=== PATIENT | male | born 1995 | race Caucasian/White ===

== ENCOUNTER → 2018-06-18 14:32 | Outpatient (CLI) | payer OTHER, MEDICAID, SELFPAY | PROVIDERS: Visit Provider Family Medicine | DX: R10.13 Epigastric pain (principal) ==

== ENCOUNTER → 2018-06-21 13:15 | Outpatient (CLI) | payer OTHER, MEDICAID, SELFPAY ==
[2018-07-01 15:36] LABS: H. Pylori Antigen Stool NOT DETECTED
== END ==
PROVIDERS: Family Provider Family Medicine; Visit Provider Family Medicine
DX: R10.13 Epigastric pain (principal)
CPT/HCPCS: 86677

== ENCOUNTER 2018-08-16 14:30 | Outpatient (RCR) | payer OTHER, MEDICAID, SELFPAY ==
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
--- NOTE | 2018-08-13 09:41 | PT.OPPOC ---
Current Diagnoses Dorsalgia, unspecified (08/13/18) Provider Visit Care Team Role Provider Type Donny Chavis MD Family Provider Physician Specialty: Family Practice Address: [address] [place] [address], [id number] Email: [email or web address] Emilia Hammond MD Attending Provider Physician Primary Care Provider Specialty: [facility] Practice Address: [address] [place] [address], [id number] Email: [email or web address] Plan Of Care PT-OP-T Assessment and Plan Start: 08/13/18 08:16 Freq: Status: Active Protocol: Document 08/13/18 08:17 [facility] (Rec: 08/13/18 09:40 [facility] [id number]) Physical Therapy Assessment Rehab Potential Rehabilitation Potential Good Evaluation Complexity Number of Personal Factors/Comorbidities 3 or More Number of Body Systems Impaired 4 or More Clinical Presentation at Evaluation Evolving Impairments Impairments Activity Tolerance Functional Activities Gait Pain Posture ROM Soft Tissue Mobility Strength Goals Three Impairment posture Short Term Goal (STG) Pt will present with good posture without cueing STG Duration 09/24/18 Two Impairment strength Short Term Goal (STG) indep with HEP STG Duration 09/12/18 Razor Sharpener Goal (LTG) 5/5 LPM, VCT, EFT & LE strength to allow pt to show improvement in stability to have dec pain with activity LTG Duration 10/13 One Impairment MONTES Fpc Goal (LTG) Frequency to 1x/week LTG Duration 10/13/18 Assessment Summary Assessment Pt presents with chronic LBP & neck pain with poor posture & poor core stability & control . Physical Therapy Plan Frequency and Duration Frequency of Treatment 2x/Week Duration of Treatment 2 months Plan of Care Start Date 08/13/18 Plan of Care End Date 10/13/18 Therapeutic Interventions Therapeutic Interventions Aquatic Therapy Balance Training Gait Training Home Exercise Program Joint Mobilizations Manual Therapy Soft Tissue Mobilization Taping Therapeutic Activities Therapeutic Exercises Modalities Cold Pack/Ice Massage Electric Stimulation Hot Packs Infrared Therapy Traction- Mechanical Ultrasound Next Visit Focus/Plan Next Note Type Treatment Note Next Visit Plan Hip mobilizations, cat/camel, post pelvic tilt, bridging, STM to paraspinals, Estim & MHP/CP Plan of Care Dates Plan of Care Start Date 08/13/18 Plan of Care End Date 10/13/18 Please Sign and Return: I have reviewed this Plan of Care and certify that the skilled therapy services above are required to meet the patient?s needs. Physician Signature Date Printed Name and Credentials Clinical Instructor Signature Printed Name and Credentials
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
== END 2018-11-20 10:14 ==
LOC: PHYS 14:30
PROVIDERS: Family Provider Family Medicine; PCP Family Medicine; Visit Provider Family Medicine
DX: M54.9 Dorsalgia, unspecified (principal)
CPT/HCPCS: 97014; 97110; 97140; 97162; G0283